=== PATIENT | female | born 1960 | race Caucasian/White ===

== ENCOUNTER 2016-09-28 23:37 | Emergency (ER) | payer BC ==
[~2016-09-28] VITALS: Ht 167.6 cm; Wt 67.1 kg
--- NOTE | ~2016-09-28 | CR281 ---
[facility] A Service of [facility] RADIOLOGY TEXT RESULTS PATIENT: FATUMA GRAMAJO LOCATION: [facility] : 60 UNIT #: [id number] AGE: [address]: Naima Charles APRN SEX: F ORDER DR: [id number] [facility] [address] [place], [place] [address] [id number] E MR#: [id number] Acc #: [id number] NAME: FATUMA GRAMAJO. : 1960 SEX: F STUDY DATE/TIME: 09/29/2016 0:08 UNIT: [place] ROOM: STUDY DESCRIPTION: CR Wrist Min 3 View Lt Attending Physician: Naima Charles A.P.R.N. Ordering Physician: Ed Doctor [id number] [facility] Primary Care Physician: Ortiz De Santiago M.D. MEDICAL IMAGING REPORT This report is preliminary unless electronic signature is present EXAM Left wrist series INDICATIONS Left wrist pain after fall today. PROCEDURE Three-views left wrist. COMPARISON STUDIES None. FINDINGS Oblique fracture through the distal radius, minimally comminuted with approximately 7 mm lateral displacement of the proximal fracture fragment. There is also mildly comminuted fracture of the distal ulnar shaft, with approximately 4 mm of displacement. No evidence for radiocarpal dislocation. IMPRESSION Comminuted mildly displaced fractures of the distal radius and ulna Dictated by... Jovi Wen M.D. THIS IS AN ELECTRONICALLY VERIFIED REPORT Jovi Wen M.D. at 09/29/2016 10:24 PM PABLO/priyank TD: 09/29/2016 07:38 JOB #: [id number] [facility] A Service of [facility] RADIOLOGY TEXT RESULTS PATIENT: FATUMA GRAMAJO LOCATION: [facility] : 60 UNIT #: [id number] AGE: [address]: Naima Charles APRN SEX: F ORDER DR: MEDICAL IMAGING REPORT Page 1 of 1 COPY
--- NOTE | ~2016-09-28 | CR132 ---
[facility] A Service of [facility] RADIOLOGY TEXT RESULTS PATIENT: FATUMA GRAMAJO LOCATION: [facility] : 60 UNIT #: [id number] AGE: [address]: Naima Charles APRN SEX: F ORDER DR: [id number] [facility] [address]. [place], [place] [address] [id number] E MR#: [id number] Acc #: [id number] NAME: FATUMA GRAMAJO. : 1960 SEX: F STUDY DATE/TIME: 09/29/2016 0:08 UNIT: TX ROOM: STUDY DESCRIPTION: CR Forearm 2 View Lt Attending Physician: Naima Charles A.P.R.N. Ordering Physician: Ed Doctor [id number] Primary Care Physician: Ortiz De Santiago M.D. MEDICAL IMAGING REPORT This report is preliminary unless electronic signature is present EXAM Left forearm series INDICATIONS Left forearm pain after fall today. PROCEDURE Two views left forearm. COMPARISON STUDIES None. FINDINGS Comminuted fractures distal ulna and radius as described in concurrently performed left wrist series. No other fracture. IMPRESSION Fractures of the distal radius and ulna. Dictated by... Jovi Wen M.D. THIS IS AN ELECTRONICALLY VERIFIED REPORT Jovi Wen M.D. at 09/29/2016 10:24 PM PABLO/priyank TD: 09/29/2016 07:39 JOB #: [id number] MEDICAL IMAGING REPORT Page 1 of 1 COPY
[~2016-09-28 23:37] MED LIST: ALEVE PO; OMEPRAZOLE40 MG PO
== END 2016-09-29 01:44 | disposition home or self-care (01) ==
LOC: CFTX 23:37 → CED 23:37 → CFTX 23:58
DX: S52.502A Unspecified fracture of the lower end of left radius, initial encounter for closed fracture (principal); S52.202A Unspecified fracture of shaft of left ulna, initial encounter for closed fracture; F17.200 Nicotine dependence, unspecified, uncomplicated; W01.0XXA Fall on same level from slipping, tripping and stumbling without subsequent striking against object, initial encounter
CPT/HCPCS: 29125; 73090; 73110; 99283